=== PATIENT | female | born 1945 | race African-American/Black ===

== ENCOUNTER → 2017-02-27 | Day surgery (SDC) | payer MEDICARE ==
[~2017-02-27] VITALS: Ht 170.2 cm; Wt 127.0 kg
[~2017-02-27] MED LIST: ACETAMINOPHEN 1000 MG/100 ML VIAL IV ONE; CEPH-459 PO; CHLORHEXIDINE GLUCONATE 2 % 1 PACK (2 CLOTHS) TOPICAL PRN; DIGO0.12 PO; DO NOT ADM ANY ANTICOAGULANT DRUGS PRN; FURO40TA PO; INSULIN HUMAN REGULAR 1,000 UNITS/10 ML VIAL SQ PRN; IOHEXOL 350 MG/ML 10 ML VIAL (for RAD DIAG) ONE; LACTATED RINGER'S 1000 ML IV PRN; METO50TA PO; METOPROLOL TARTRATE 25 MG TAB PO PRN; MIDAZOLAM HCL 2 MG/2 ML VIAL ONE; ONDANSETRON HCL 4 MG/2 ML VIAL IV PUSH ONE; ONDANSETRON HCL 4 MG/2 ML VIAL IV PUSH PRN; PERC5TAB12 PO; POTA10TA2 PO; POVIDONE IODINE 5% (ANTISEPSIS KIT) 4 APPLICATIONS EACH NARE PRN; PRAV20TA2 PO; PROPOFOL 200 MG/20 ML AMP IV ONE; SODIUM CHLORID 0.9% 500 ML IV PRN; TAMS5CAP PO; WARF-20 PO; ceFAZolin 2 GM PREMIX 50 ML ONE; oxyCODONE/ACETAMINOPHEN 5 MG/325 MG TAB PO PRN
[2017-02-27 07:28] VITALS: BP 130/83; PULSE 60; RESP 18; TEMP 97.8; O2SAT 100
[2017-02-27 08:00] LABS: AUTOMATED NEUTROPHIL # 4.1 TH/MM3 (1.8-7.7); BASOPHIL % 0.7 % (0.0-2.0); EOSINOPHIL # 0.1 TH/MM3 (0-0.4); EOSINOPHIL % 1.2 % (0.0-4.0); HEMATOCRIT 39.7 % (35.0-46.0); HEMO FLAGS DIFF FINAL; LYMPH % 29.2 % (9.0-44.0); LYMPHOCYTE # 1.9 TH/MM3 (1.0-4.8); MEAN CELL VOLUME 85.2 FL (80.0-100.0); MEAN CORPUSCULAR HEMOGLOBIN 28.6 PG (27.0-34.0); MEAN CORPUSCULAR HGB CONC 33.5 % (32.0-36.0); MONO % 7.6 % (0.0-8.0); NEUT % 61.3 % (16.0-70.0); PLATELET COUNT 290 TH/MM3 (150-450); RED BLOOD COUNT 4.65 MIL/MM3 (4.00-5.30); RED CELL DISTRIBUTION WIDTH 15.8 % (11.6-17.2); WHITE BLOOD COUNT 6.7 TH/MM3 (4.0-11.0)
[2017-02-27 08:12] LABS: INTERNATIONAL NORMALIZED RATIO 1.8 RATIO; PROTHROMBIN TIME - PATIENT 20.4 SEC (9.8-11.6)
--- NOTE | 2017-02-27 10:16 | PD.OP ---
Operative Report Date of Surgery: Feb 27, 2017 Preoperative Diagnosis: (1) Renal calculus, right Postoperative Diagnosis: (1) Renal calculus, right (2) Bladder calculus Procedure: Cystoscopy, laser lithotripsy of bladder calculus, right retrograde pyelogram and right ureteral stent exchange. Anesthesia: General Surgeon: Jonh Nieto Systems Engineer(s): None Operation and Findings: Indication for procedure: Case of a 71 year-old female with multiple medical problems including obstructing right renal calculi who is being managed conservatively with an indwelling right double-J stent. Patient presents today to have her right ureteral stent exchanged. Operative procedure in detail: Patient was brought to the operating room suite and placed supine on the cystoscopy table. She was then placed under general anesthesia. She was then repositioned in the dorsolithotomy position and prepped and draped in normal sterile fashion. After an appropriate timeout was undertaken I proceeded with cystoscopic evaluation utilizing the rigid cystoscope with the 30 lens and 20 Somali sheath. The patient was noted to have a greater than 1 cm bladder calculus adherent to the distal aspect of the right stent. No other abnormalities were noted. The left ureteral orifice was effluxing clear yellow urine. There were no areas suspicious for bladder tumor formation. I then utilized the holmium laser device with the 365 fiber and proceeded with laser lithotripsy of the bladder calculus. Once the bladder calculus was broken up into tiny pieces the laser fiber was withdrawn. A sensor 0.35 wire was then advanced alongside the right stent up into the right kidney under fluoroscopic and cystoscopic guidance. With the wire in place the cystoscope was withdrawn and reintroduced alongside this wire. The flexible grasping forceps were then utilized to grasp the distal margin of the right double-J stent which was carefully removed. I then backloaded the wire through the cystoscope and advanced a 6 Somali open-ended ureteral catheter over the wire up into the right kidney. The wire was removed and a right retrograde program study performed to outline the collecting system. Multiple filling defects were seen within the right kidney consistent with the patient's known renal calculi. The sensor wire was reintroduced and the open-end catheter was exchanged for a long term care phlebotomist [place] 6 Somali 24 cm length double-J stent. The stent was placed under both cystoscopic and fluoroscopic guidance without difficulty. Once the stent was in proper position the trailing string was removed. The small bladder stone fragments within the urinary bladder within irrigated out with a piston syringe. A 16 Somali 10 cc Hernandez catheter was then placed and connected to gravity drainage. The patient tolerated the procedures without complications and was transferred to PACU in satisfactory condition. Jonh Nieto MD Feb 27, 2017 10:16
--- NOTE | 2017-02-27 10:30 | EKG ---
Date Performed: 02/27/2017 Time Performed: 07:27:29 PTAGE: 71 years EKG: ELECTRONIC VENTRICULAR PACEMAKER ABNORMAL RHYTHM ECG PREVIOUS TRACING : 02/15/2016 08.59 DOCTOR: Yousif Armendariz Interpretating Date/Time 02/27/2017 10:29:21
[2017-02-27 11:43] VITALS: BP 121/71; PULSE 57; RESP 16; TEMP 97.7; O2SAT 97
== END | disposition home or self-care (01) ==
LOC: HSDC 06:50
PROVIDERS: ATTEND Urology
DX: N20.0 Calculus of kidney (principal); N21.0 Calculus in bladder; I48.91 Unspecified atrial fibrillation; I10 Essential (primary) hypertension
CPT/HCPCS: 00918; 52356; 74420; 85025; 85610; 93005; C1769; J0131; J0690; J2250; J2405; J3010; J7120; Q9967